=== PATIENT | female | born 1970 | race Caucasian/White ===

== ENCOUNTER → 2016-09-21 | Outpatient (CLI) | payer OTHER ==
--- NOTE | 2016-09-21 16:15 | REPMRS ---
Patient History The patient states she has not had a clinical breast exam in over a year. Patient has history of skin cancer at age 44. No known family history of cancer. Digital Woman Screen Mammo: September 21, 2016 - Exam #: [id number] Bilateral CC and MLO view(s) were taken. Technologist: Mariama Humphries, Technologist Prior study comparison: April 05, 2015, digital woman screen mammo performed at [facility]. FINDINGS: There are scattered fibroglandular densities. There has been no change in the appearance of the mammogram from the prior studies. There is a moderate amount of residual fibroglandular tissue which is fairly symmetric. There is no interval development of dominant mass, architectural distortion, or clustered microcalcification suggestive of malignancy. Scattered lymph nodes are seen in the axillae. There are scattered, small, benign calcifications of doubtful clinical significance. No significant changes when compared with prior studies. ASSESSMENT: BI-RADS/ACR category 2 mammogram. Benign finding(s). Recommendation Routine screening mammogram in 1 year (for women over age 40). This mammogram was interpreted with the aid of an FDA-approved computer-aided dectection system. A. Negative x-ray reports should not delay biopsy if a dominant or clinically suspicious mass is present. B. Four to eight percent of cancers are not identified by mammography. C. Adenosis and dense breast may obscure an underlying neoplasm. Electronically Signed By: Ab Tirado MD 09/21/16 [id number]
== END ==
LOC: M WHC 14:36
PROVIDERS: ATTEND Family Medicine
DX: Z12.31 Encounter for screening mammogram for malignant neoplasm of breast (principal)

== ENCOUNTER → 2017-03-16 | Outpatient (REF) | payer MEDICAID ==
[2017-03-16 17:47] LABS: ALBUMIN 3.8 GM/DL (3.2-5.2); ALBUMIN/GLOBULIN RATIO 1.15 (1.00-1.93); ALKALINE PHOSPHATASE 60 U/L (45-117); ALT/SGPT 28 U/L (12-78); ANION GAP 7 MEQ/L (8-16); AST/SGOT 14 U/L (15-37); BILIRUBIN,TOTAL 0.3 MG/DL (0.2-1.0); BLOOD UREA NITROGEN 13 MG/DL (7-18); CALCIUM LEVEL 8.9 MG/DL (8.5-10.1); CARBON DIOXIDE LEVEL 28 MEQ/L (21-32); CHLORIDE LEVEL 107 MEQ/L (98-107); CHOLESTEROL LEVEL 221 MG/DL (<200); CREATININE FOR GFR 0.76 MG/DL (0.55-1.02); GLOMERULAR FILTRATION RATE > 60.0 (>58); GLUCOSE, FASTING 87 MG/DL (70-105); POTASSIUM SERUM 4.6 MEQ/L (3.5-5.1); SODIUM LEVEL 142 MEQ/L (136-145); TOTAL PROTEIN 7.1 GM/DL (6.4-8.2); TRIGLYCERIDES LEVEL 138 MG/DL (<150)
[2017-03-16 18:19] LABS: BASO % 0.4 % (0.0-1.0); EOS # 0.4 K/mm3 (0.0-0.50); EOS % 4.6 % (0.0-3.0); LARGE UNSTAINED CELL # 0.1 K/mm3 (0.0-0.4); LARGE UNSTAINED CELL % 0.9 % (0.0-4.0); LYMPH # 1.9 K/mm3 (1.5-4.5); LYMPH % 22.9 % (24.0-44.0); MEAN CORPUSCULAR HEMOGLOBIN 29.6 pg (27.0-33.0); MEAN CORPUSCULAR HGB CONC 33.3 g/dl (32.0-36.5); MEAN CORPUSCULAR VOLUME 88.8 fl (80.0-96.0); MONO # 0.4 K/mm3 (0.0-0.8); MONO % 4.9 % (0.0-5.0); NEUTROPHILS # 5.3 K/mm3 (1.8-7.7); NEUTROPHILS % 66.3 % (36.0-66.0); PLATELET COUNT, AUTOMATED 293 k/mm3 (150-450); RED CELL DISTRIBUTION WIDTH 13.3 % (11.5-14.5); WHITE BLOOD COUNT 7.9 K/mm3 (4.0-10.0)
== END ==
LOC: M SFHCPLAZ 16:40
PROVIDERS: ATTEND Nurse Practitioner Family
DX: M19.072 Primary osteoarthritis, left ankle and foot (principal); Z13.220 Encounter for screening for lipoid disorders

== ENCOUNTER → 2017-03-16 | Outpatient (REF) | payer MEDICAID, OTHER ==
[2017-03-16 17:55] LABS: FOLATE 14.4 NG/ML
[2017-03-16 17:56] LABS: FREE T4 0.87 NG/DL (0.76-1.46)
[2017-03-19 00:55] LABS: Lyme Disease IgG/IgM Antibodie <0.91 ISR (0.00-0.90); Lyme Disease IgM Ab Quantitati <0.80 index (0.00-0.79)
== END ==
LOC: M SFHCCAPE 11:15
PROVIDERS: ATTEND Physician Assistant
DX: R53.83 Other fatigue (principal)

== ENCOUNTER → 2017-03-26 | Outpatient (CLI) | payer MEDICAID, OTHER ==
--- NOTE | 2017-03-26 18:49 | REP ---
LEFT SHOULDER, THREE VIEWS: HISTORY: Pain. There is no acute fracture or dislocation. The joint spaces are normal in appearance. IMPRESSION: There is no acute fracture or dislocation. Signed by Serge Frye MD 03/26/2017 06:52 P
== END ==
LOC: M LRY 18:01
PROVIDERS: ATTEND Physician Assistant
DX: S49.92XA Unspecified injury of left shoulder and upper arm, initial encounter (principal); X58.XXXA Exposure to other specified factors, initial encounter; Y92.89 Other specified places as the place of occurrence of the external cause; Y93.89 Activity, other specified; Y99.8 Other external cause status; M79.622 Pain in left upper arm

== ENCOUNTER 2017-08-10 13:27 | Emergency (ER) | payer OTHER, MEDICAID ==
[2017-08-10] MEDS: ONDANSETRON 4MG/2ML VIAL (J2405) IV (14:05)
[2017-08-10] MEDS: MORPHINE 4 MG/ML 1ML VIAL (J2270) IV ×4 (14:06→16:17)
[2017-08-10 15:01] LABS: ANION GAP 7 MEQ/L (8-16); BLOOD UREA NITROGEN 12 MG/DL (7-18); CALCIUM LEVEL 8.4 MG/DL (8.5-10.1); CARBON DIOXIDE LEVEL 29 MEQ/L (21-32); CHLORIDE LEVEL 102 MEQ/L (98-107); CREATININE FOR GFR 0.73 MG/DL (0.55-1.30); GLOMERULAR FILTRATION RATE > 60.0 (>58); GLUCOSE, FASTING 99 MG/DL (70-100); POTASSIUM SERUM 3.9 MEQ/L (3.5-5.1); SODIUM LEVEL 138 MEQ/L (136-145)
[2017-08-10 15:02] LABS: BASO % 0.3 % (0.0-1.0); EOS # 0.1 10^3/uL (0.0-0.50); EOS % 0.8 % (0.0-3.0); HEMATOCRIT 42.7 % (36.0-47.0); HEMOGLOBIN 14.7 g/dl (12.0-16.0); IMMATURE GRANULOCYTE % 0.4 % (0-3.0); LYMPH # 1.8 10^3/uL (1.5-4.5); LYMPH % 12.1 % (24.0-44.0); MEAN CORPUSCULAR HEMOGLOBIN 29.6 pg (27.0-33.0); MEAN CORPUSCULAR HGB CONC 34.4 g/dl (32.0-36.5); MEAN CORPUSCULAR VOLUME 86.1 fl (80.0-96.0); MONO # 0.6 10^3/uL (0.0-0.8); MONO % 4.2 % (0.0-5.0); NEUTROPHILS % 82.2 % (36.0-66.0); PLATELET COUNT, AUTOMATED 307 10^3/uL (150-450); RED BLOOD COUNT 4.96 10^6/uL (4.00-5.40); RED CELL DISTRIBUTION WIDTH 12.9 % (11.5-14.5); WHITE BLOOD COUNT 14.6 10^3/uL (4.0-10.0)
[2017-08-10] MEDS: ADACEL/BOOSTRIX VACCINE (DIPHTH/PERTUSS/ACELL/TETANUS)0.5ML SYR (90715) IM (15:30)
[2017-08-10] MEDS: NS 1,000 ML IV (15:30)
== END 2017-08-10 18:10 | disposition short-term general hospital (02) ==
LOC: M ED 13:27
DX: S82.222B Displaced transverse fracture of shaft of left tibia, initial encounter for open fracture type I or II (principal); S82.402B Unspecified fracture of shaft of left fibula, initial encounter for open fracture type I or II; S82.832B Other fracture of upper and lower end of left fibula, initial encounter for open fracture type I or II; W55.29XA Other contact with cow, initial encounter; Y92.71 Barn as the place of occurrence of the external cause; J45.909 Unspecified asthma, uncomplicated; M19.072 Primary osteoarthritis, left ankle and foot; Z79.51 Long term (current) use of inhaled steroids; Z79.899 Other long term (current) drug therapy; Z88.0 Allergy status to penicillin
CPT/HCPCS: J2270

== ENCOUNTER → 2017-09-06 | Outpatient (CLI) | payer OTHER | LOC: M RAD 15:24 | DX: S82.402D Unspecified fracture of shaft of left fibula, subsequent encounter for closed fracture with routine healing (principal); X58.XXXD Exposure to other specified factors, subsequent encounter; Z96.9 Presence of functional implant, unspecified; M19.072 Primary osteoarthritis, left ankle and foot | CPT/HCPCS: 73590 ==

== ENCOUNTER → 2017-11-10 | Outpatient (CLI) | payer OTHER | LOC: M RAD 13:38 | DX: M19.072 Primary osteoarthritis, left ankle and foot (principal); M77.32 Calcaneal spur, left foot; I82.442 Acute embolism and thrombosis of left tibial vein; M79.89 Other specified soft tissue disorders | CPT/HCPCS: 73610 ==

== ENCOUNTER → 2017-11-19 | Outpatient (REF) | payer OTHER ==
[2017-11-21 00:06] LABS: HOMOCYST(E)INE SERUM 6.8 umol/L (0.0-15.0)
[2017-11-23 14:12] LABS: PROTEIN C FUNCTIONAL ACTIVITY 113 % (73-180); PROTEIN S FUNCTIONAL ACTIVITY 82 % (63-140)
[2017-11-23 14:12] LABS: ANTI THROMBIN 3 FUNCT ACTIVITY 105 % (75-135)
[2017-11-30 07:22] LABS: DRVV SCREEN 76.6 SEC
[2017-11-30 07:27] LABS: PTT LUPUS TYPE ANTICOAG SCREEN 1.8 (0-1.2)
[2017-11-30 07:34] LABS: DRVV CONFIRM 47.5 SEC; LUPUS CONFIRM RATIO 1.3
[2017-11-30 07:37] LABS: NORMALIZED RATIO 1.38 (0.00-1.20)
[2017-12-02 10:16] LABS: HEXAGONAL PHASE PHOSPHOLIPID 5 sec (0-11)
== END ==
LOC: M SFHCPLAZ 09:30
DX: I82.442 Acute embolism and thrombosis of left tibial vein (principal)

== ENCOUNTER → 2018-10-18 | Outpatient (REF) | payer OTHER ==
[~2018-10-18] MED LIST: ADV250INH INH; CETI10TA; FLUTISP; PROAAER10
== END ==
LOC: M SFHCPLAZ 14:17
PROVIDERS: ATTEND Family Medicine
DX: Z53.9 Procedure and treatment not carried out, unspecified reason (principal); Z13.220 Encounter for screening for lipoid disorders; R00.0 Tachycardia, unspecified; R79.89 Other specified abnormal findings of blood chemistry

== ENCOUNTER → 2018-10-25 | Outpatient (REF) | payer OTHER ==
[2018-10-25 20:48] LABS: BLOOD UREA NITROGEN 16 MG/DL (7-18); CREATININE FOR GFR 0.87 MG/DL (0.55-1.30); GLOMERULAR FILTRATION RATE > 60.0 (>58); GLUCOSE, FASTING 86 MG/DL (70-100); SODIUM LEVEL 140 MEQ/L (136-145)
[2018-10-25 20:49] LABS: CARBON DIOXIDE LEVEL 28 MEQ/L (21-32); CHLORIDE LEVEL 106 MEQ/L (98-107)
[2018-10-25 20:50] LABS: ALBUMIN 3.7 GM/DL (3.2-5.2); ALT/SGPT 19 U/L (12-78); BILIRUBIN,TOTAL 0.3 MG/DL (0.2-1.0); CALCIUM LEVEL 8.5 MG/DL (8.5-10.1); CHOLESTEROL LEVEL 182 MG/DL (<200); CHOLESTEROL RISK RATIO 3.137 (<5); HDL CHOLESTEROL 58 MG/DL (>40); LDL CHOLESTEROL 99.8 MG/DL (<100); NON-HDL-C 124 MG/DL; TOTAL PROTEIN 6.8 GM/DL (6.4-8.2); TRIGLYCERIDES LEVEL 121 MG/DL (<150)
[2018-10-25 21:49] LABS: TOTAL 25(OH) VITAMIN D 15.1 NG/ML (30.0-100.0)
== END ==
LOC: M SFHCPLAZ 08:53
PROVIDERS: ATTEND Family Medicine
DX: Z13.220 Encounter for screening for lipoid disorders (principal); R00.0 Tachycardia, unspecified; R79.89 Other specified abnormal findings of blood chemistry

== ENCOUNTER → 2020-04-22 | Outpatient (CLI) | payer OTHER ==
--- NOTE | 2020-04-22 18:19 | REPPI ---
INDICATION: M25.571 PAIN IN RIGHT ANKLE AND JOINTS. Right ankle and foot pain. COMPARISON: Comparison radiographs of the right ankle are from June 01, 2008.. TECHNIQUE: Four views. FINDINGS: Four views of the right ankle demonstrate advanced tibiotalar osteoarthritis with medial joint space narrowing and medial tibiotalar spurring. There is anterior tibiotalar spurring. The ankle mortise is markedly widened laterally consistent with ligament instability and/or chronic disruption. There is some soft tissue swelling laterally mild in degree. There is a plantar calcaneal spur. Minimal midfoot osteoarthritic spurring is present on the lateral radiograph. No acute erosive changes seen. IMPRESSION: Widening of the ankle mortise laterally consistent with ligament instability. Moderate tibiotalar osteoarthritis with spurring and joint space narrowing. A tiny accessory ossicle is seen adjacent to medial malleolus. There is mild midfoot osteoarthritic spurring. Plantar heel spur. Findings are more pronounced than on the comparison radiograph from 2007. <Electronically signed by Leandro Alford > 04/22/20 [id number]
--- NOTE | 2020-04-22 18:21 | REPPI ---
INDICATION: M25.571 PAIN IN RIGHT ANKLE AND JOINTS. Right foot and ankle pain. COMPARISON: None. TECHNIQUE: Four views. FINDINGS: Four views of the right foot demonstrate overall normal mineralization. There is mild midfoot spurring. Tibiotalar ankle joint osteoarthritis is seen moderate in degree. There is a plantar calcaneal spur. No fracture or other acute bony abnormality is seen.. IMPRESSION: Negative osteoarthritis of the ankle and to a lesser extent, the midfoot articulations. Plantar heel spur. No acute bony abnormality. Otherwise negative right foot series. <Electronically signed by Leandro Alford > 04/22/20 [id number]
== END ==
LOC: M PLAIMG 14:32
PROVIDERS: ATTEND Family Medicine
DX: M19.071 Primary osteoarthritis, right ankle and foot (principal); M77.31 Calcaneal spur, right foot

== ENCOUNTER → 2021-01-29 | Outpatient (REF) | payer OTHER | LOC: M SFHCPLAZ 13:05 | PROVIDERS: ATTEND Student in an Organized Health Care Education/Training Program | DX: C44.301 Unspecified malignant neoplasm of skin of nose (principal) ==

== ENCOUNTER → 2021-05-17 | Outpatient (REF) | payer OTHER | LOC: M LAB REF 21:01 | PROVIDERS: ATTEND Physician Assistant Medical | DX: R53.83 Other fatigue (principal) ==

== ENCOUNTER 2021-05-30 15:10 | Emergency (ER) | payer OTHER ==
[~2021-05-30] VITALS: Ht 167.6 cm; Wt 95.5 kg
--- OUTSIDE RECORDS SUMMARY | 2021-05-30 15:17 | CCD | Continuity of Care Document ---
Author Author Carolyn MUNOZ PA-C Organization Unknown Address [address] [place] [id number] Phone [phone] Care Team Providers Care Erp Project Manager Name Role Phone Oriana Graves MD AUTM [phone] Problems Description No Active Problems Social History Type Date Description Comments Sex Unknown ETOH Use Occasionally consumes alcohol Tobacco Use Start: Unknown Denies Smoking Allergies, Adverse Reactions, Alerts Active Allergies Criticality Reaction | Severity Comments Date Augmentin Unable to assess criticality 04/10/2015 Singulair Unable to assess criticality 11/05/2016 Amoxicillin Unable to assess criticality 11/05/2016 Medications Active Medications SIG Qnty Indications Ordering Provide r Date Advair Diskus 250-50mcg/Dose Aeros ol 2 puffs every day Unknown Albuterol Sulfate Nebulizer Unknown Valerian Root Unknown Immunizations Description No Information Available Vital Signs Date Vital Result Comment 02/25/2021 3:05pm Body Temperature 97.5 F Height 66 inches 5'6" Weight 208.00 lb BMI (Body Mass Index) 33.6 kg/m2 11/05/2016 8:16am Body Temperature 97.6 F Height 66 inches 5'6" Weight 181.00 lb BMI (Body Mass Index) 29.2 kg/m2 Results Description No Information Available Procedures Date Code Description Status 02/25/2021 89517 Office/Outpatient New Low MDM 30 -44 Minutes Completed 02/25/2021 89268 X-Ray Ankle Complete Completed Medical Devices Description No Information Available Encounters Type Date Location Provider Dx Diagnosis Office Visit 02/25/2021 2:30p [facility] Maribel Munoz PA-C M1 9.071 Primary osteoarthritis, right ankle and foot M19.072 Primary osteoarthritis, left ankle and foot Assessments Date Code Description Provider 02/25/2021 M19.071 Primary osteoarthritis, right an kle and foot Mar[facility] Munoz PA-C 02/25/2021 M19.072 Primary osteoarthritis, left ank le and foot Maribel Munoz PA-C Plan of Treatment Future Appointment(s):* 03/19/2021 10:45 am - Maribel Munoz PA-C at [facility] 02/25/2021 - Maribel Munoz PA-C* M19.071 Primary osteoarthritis, right ankle and foot* Follow up:* 2-3 week Cam ankle magalie with BMS. * M19.072 Primary osteoarthritis, left ankle and foot Functional Status Description No Information Available Mental Status Description No Information Available Referrals Description No Information Available
--- OUTSIDE RECORDS SUMMARY | 2021-05-30 15:17 | CCD ---
Author Author [facility] Organization [facility] Address Unknown Phone Unavailable Care Team Providers Care Film Tests Checker Name Role Phone Vanessa Munoz Unavailable Unavailable Vanessa Munoz Unavailable Unavailable Vanessa Munoz Unavailable Unavailable Vanessa Munoz Unavailable Unavailable Vanessa Munoz Unavailable Unavailable Vanessa Munoz Unavailable Unavailable Vanessa Munoz Unavailable Unavailable Vanessa Munoz Unavailable Unavailable Vanessa Munoz Unavailable Unavailable Vanessa Munoz Unavailable Unavailable Vanessa Munoz Unavailable Unavailable Vanessa Munoz Unavailable Unavailable Vanessa Munoz Unavailable Unavailable Vanessa Munoz Unavailable Unavailable Vanessa Munoz Unavailable Unavailable Vanessa Munoz Unavailable Unavailable Vanessa Munoz Unavailable Unavailable Vanessa Munoz Unavailable Unavailable Vanessa Munoz Unavailable Unavailable Vanessa Munoz Unavailable Unavailable Vanessa Munoz Unavailable Unavailable Vanessa Munoz Unavailable Unavailable Vanessa Munoz Unavailable Unavailable Vanessa Munoz Unavailable Unavailable Vanessa Munoz Unavailable Unavailable Vanessa Munoz Unavailable Unavailable Vanessa Munoz Unavailable Unavailable Vanessa Munoz Unavailable Unavailable Vanessa Munoz Unavailable Unavailable Re-disclosure Warning The records that you are about to access may contain information from federally-assisted alcohol or drug abuse programs. If such information is present, then the following federally mandated warning applies: This information has been disclosed to you from records protected by federal confidentiality rules (42 CFR part 2). The federal rules prohibit you from making any further disclosure of this information unless further disclosure is expressly permitted by the written consent of the person to whom it pertains or as otherwise permitted by 42 CFR part 2. A general authorization for the release of medical or other information is NOT sufficient for this purpose. The Federal rules restrict any use of the information to criminally investigate or prosecute any alcohol or drug abuse patient.The records that you are about to access may contain highly sensitive health information, the redisclosure of which is protected by Article 27-F of the [facility] Public Health law. If you continue you may have access to information: Regarding HIV / AIDS; Provided by facilities licensed or operated by the [facility] Office of Mental Health; or Provided by the [facility] Office for People With Developmental Disabilities. If such information is present, then the following [facility] mandated warning applies: This information has been disclosed to you from confidential records which are protected by state law. State law prohibits you from making any further disclosure of this information without the specific written consent of the person to whom it pertains, or as otherwise permitted by law. Any unauthorized further disclosure in violation of state law may result in a fine or longterm sentence or both. A general authorization for the release of medical or other information is NOT sufficient authorization for further disc losure. Family History Family Member Name Family Member Gender Family Member Status Date o f Status Description Data Source(s) Unknown Male Problem MEDENT ([facility]) Encounters Encounter Providers Location Date Indications Data Source(s ) Outpatient [address] [facility] [place] [address] 04/16/2021 12:00:00 AM EDT eCW1 ([facility]) Outpatient [address] [facility] [place] [address] 04/10/2021 12:00:00 AM EDT eCW1 ([facility]) Unknown [address] [facility] [place] [address] 04/08/2021 12:00:00 AM EDT eCW1 ([facility]) [place] [address] [facility] [address] [place] [address] 03/28/2021 12:00:00 AM EDT eCW1 ([facility]) OFFICE OUTPATIENT NEW 30 MINUTES Attender: Maribel RIOS Ph ysical Therapy 02/25/2021 02:30:00 PM EDT [facility] ([facility]) [place] [address] [facility] [address] 02/04/2021 12:00:00 AM EDT eCW1 ([facility]) [place] [address] [facility] [place] [address] 01/14/2021 12:00:00 AM EDT eCW1 ([facility]) [place] [address] [facility] [place] [address] 01/13/2021 12:00:00 AM EDT eCW1 ([facility]) [place] [address] [facility] [place] [address] 11/18/2020 12:00:00 AM EDT eCW1 ([facility]) [place] [address] [facility] [place] [address] 04/22/2020 12:00:00 AM EDT eCW1 ([facility]) Immunizations Vaccine Date Status Description Data Source(s) COVID-19 VACCINE Moderna 10/08/2020 12:00:00 AM EDT completed [facility] Vaccine Series Complete: YESThis Data wa s Submitted to [facility] Via [employer]. COVID-19 VACCINE Moderna 09/10/2020 12:00:00 AM EDT completed [facility] Vaccine Series Complete: NOThis Data was Submitted to [facility] Via [employer]. influenza, recombinant, quadrIvalent,injectable, prese rvative free 04/22/2020 05:24:00 PM EDT completed eCW1 ([facility]) influenza, recombinant, quadrIvalent,injectable, prese rvative free 04/22/2020 05:24:00 PM EDT completed eCW1 ([facility]) influenza, recombinant, quadrIvalent,injectable, prese rvative free 04/22/2020 05:24:00 PM EDT completed eCW1 ([facility]) influenza, recombinant, quadrIvalent,injectable, prese rvative free 04/22/2020 05:24:00 PM EDT completed eCW1 ([facility]) influenza, recombinant, quadrIvalent,injectable, prese rvative free 04/22/2020 05:24:00 PM EDT completed eCW1 ([facility]) influenza, recombinant, quadrIvalent,injectable, prese rvative free 04/22/2020 05:24:00 PM EDT completed eCW1 ([facility]) influenza, recombinant, quadrIvalent,injectable, prese rvative free 04/22/2020 05:24:00 PM EDT completed eCW1 ([facility]) influenza, recombinant, quadrIvalent,injectable, prese rvative free 04/22/2020 05:24:00 PM EDT completed eCW1 ([facility]) influenza, recombinant, quadrIvalent,injectable, prese rvative free 04/22/2020 05:24:00 PM EDT completed eCW1 ([facility]) Medications Medication Brand Name Start Date Product Form Dose Route Admi nistrative Instructions Pharmacy Instructions Status Indications Reaction Description Data Source(s) 90 mcg/actuation 03/31/2021 12:00:00 AM EDT HFA aerosol inha ler 18 INHALE TWO PUFFS BY MOUTH EVERY 4 HOURS NEEDED INHALE TWO PUFFS BY MOUTH EVERY 4 HOURS NEEDED SOLD: 04/02/2021 [facility] 60 ACTUAT Fluticasone propionate 0.113 M G/ACTUAT / Salmeterol xinafoate 0.014 MG/ACTUAT Dry Powder Inhaler 113-14 mcg/actuation FLUTICASONE PROPION/SALMETEROL 01/14/2021 12:00:00 AM EDT aerosol powdr breath activated 1 INHALE ONE PUFF BY MOUTH TWICE A DAY INHALE ONE PUFF BY MOUTH TWICE A DAY SOLD: 01/17/2021 [facility] 113-14 mcg/actuation 09/27/2020 12:00:00 AM EDT aerosol powdr breath activated 1 INHALE ONE PUFF BY MOUTH TWICE A DAY INHA LE ONE PUFF BY MOUTH TWICE A DAY SOLD: 10/05/2020 [facility] 60 ACTUAT Fluticasone propionate 0.113 M G/ACTUAT / Salmeterol xinafoate 0.014 MG/ACTUAT Dry Powder Inhaler 113-14 mcg/actuation FLUTICASONE PROPION/SALMETEROL 09/27/2020 12:00:00 AM EDT aerosol powdr breath activated 1 INHALE ONE PUFF BY MOUTH TWICE A DAY INHALE ONE PUFF BY MOUTH TWICE A DAY SOLD: 11/27/2020 [facility] 113-14 mcg/actuation 08/31/2019 12:00:00 AM EST aerosol powdr breath activated 1 INHALE ONE PUFF BY MOUTH TWICE A DAY INHA LE ONE PUFF BY MOUTH TWICE A DAY SOLD: 07/01/2020 [facility] 90 mcg/actuation 08/28/2019 12:00:00 AM EST HFA aerosol inha ler 18 INHALE 2 PUFFS NEEDED EVERY FOUR HOURS INHALE 2 PUFFS NEEDED EVERY FOUR HOURS SOLD: 07/01/2020 [facility] Insurance Providers Payer name Policy type / Coverage type Policy ID Covered republican ID Covered republican's relationship to ames Policy [place] Plan Information i FHP-(DO Not Use) Medigap Part B [id number] Self Medicaid [place] Med[place] Part B [id number] Self [facility] Community Plan Commercial [id number] Self [id number] [facility] Comm Plan Medicaid F [id number] SELF [id number] [facility] Comm Plan Medicaid F [id number] SELF [id number] [facility] Comm Plan Medicaid F [id number] SELF [id number] [facility] I [id number] Self [id number] ANSI-Medicaid [id number] ANSI-Medicaid [id number] ANSI-Medicaid [id number] ANSI-Medicaid [id number] ANSI-Medicaid [id number] ANSI-Medicaid [id number] ANSI-Medicaid [id number] ANSI-Medicaid [id number] ANSI-Medicaid [id number] [employer] [facility] [id number] SP [id number] [facility] O [id number] S [id number] ANSI-Medicaid [id number] ANSI-Medicaid [id number] [facility] MEDICAID [id number] S [id number] MEDICAID [id number] SP [id number] O BLUE [id number] SP [id number] [employer] [id number] SP [id number] [employer] [facility] [id number] SP [id number] ANS-Medicaid [id number] ANS-Medicaid [id number] [facility]-Medicaid [id number] [facility]-Medicaid [id number] [facility]-Medicaid [id number] Problems, Conditions, and Diagnoses Code Display Name Description Problem Type Effective Dates Data Source(s) C44.311 [id number] Basal cell carcinoma of left side of nose Problem 04/10/2021 12:00:00 AM EDT eCW1 ([facility]) C44.311 [id number] Basal cell carcinoma (BCC) of skin of nos e Problem 02/04/2021 12:00:00 AM EDT eCW1 ([facility]) M19.071 [id number] Osteoarthritis of right ankle and foot Problem 01/13/2021 12:00:00 AM EDT eCW1 ([facility]) J45.30 [id number] Mild persistent asthma without complicati on Problem 01/13/2021 12:00:00 AM EDT eCW1 ([facility]) L98.491 [id number] Nonhealing skin ulcer, limited to breakdo wn of skin Problem 01/13/2021 12:00:00 AM EDT eCW1 ([facility]) Surgeries/Procedures Procedure Description Date Indications Data Source(s) Suture Removal 04/16/2021 12:00:00 AM EDT eCW1 ([facility]) Med: Derm Lidocaine with Epinephrine Inj ection 1% with 2 ml sodium bicarbonate Intradermally to marked areas 04/10/2021 12:00:00 AM EDT eCW1 ([facility]) RADEX ANKLE COMPLETE MINIMUM 3 VIEWS 02/25/2021 12:00: 00 AM EDT [facility] ([facility] ) OFFICE OUTPATIENT NEW 30 MINUTES 02/25/2021 12:00:00 A M EDT [facility] ([facility] ) RADEX ANKLE COMPLETE MINIMUM 3 VIEWS 02/25/2021 12:00: 00 AM EDT [facility] ([facility] ) Immunization: Flublok Quadrivalent (18 years & older) 0.5mL IM (Influenza) 04/22/2020 12:00:00 AM EDT eCW1 ([facility]) Results ID Date Data Source PLZ FOOT COMPLETE 04/23/2020 05:22:17 AM EDT eCW1 ([facility]) Name Value Range Interpretation Code Description Data Pebbles rce(s) Supporting Document(s) PLZ FOOT COMPLETE eCW1 ([facility]) ID Date Data Source PLZ ANKLE COMPLETE 04/23/2020 05:22:08 AM EDT eCW1 ([facility]) Name Value Range Interpretation Code Description Data Pebbles rce(s) Supporting Document(s) PLZ ANKLE COMPLETE eCW1 ([facility]) Procedure Social History No Information Vital Signs ID Date Data Source UNK Name Value Range Interpretation Code Description Data Source(s) Body weight 208 [lb_av] 208 [lb_av] eCW1 ([facility]) Body weight 94.35 kg 94.35 kg eCW1 ([facility]) Body height 65.75 [in_i] 65.75 [in_i] eCW1 ([facility]) Body mass index (BMI) [Ratio] 33.82 kg/m2 33.82 kg/m2 eCW1 ([facility]) Systolic blood pressure 120 mm[Hg] 120 mm[Hg] e CW1 ([facility]) Diastolic blood pressure 78 mm[Hg] 78 mm[Hg] eCW1 ([facility]) Body mass index (BMI) [Ratio] 33.6 kg/m2 33.6 k g/m2 MEDENT ([facility]) Body temperature 97.5 [degF] 97.5 [degF] MEDENT ([facility]) Body height 66 [in_i] 66 [in_i] MEDENT ([facility]) 5'6" Body weight 208.00 [lb_av] 208.00 [lb_av] MEDEN T ([facility]) Body weight 207.1 [lb_av] 207.1 [lb_av] eCW1 ([facility]) Body height 65.75 [in_i] 65.75 [in_i] eCW1 ([facility]) Body mass index (BMI) [Ratio] 33.68 kg/m2 33.68 kg/m2 eCW1 ([facility]) Heart rate 98 /min 98 /min eCW1 ([facility]) Respiratory rate 18 /min 18 /min eCW1 ([facility]) Body temperature 98.0 [degF] 98.0 [degF] eCW1 ( [facility]) Systolic blood pressure 124 mm[Hg] 124 mm[Hg] e CW1 ([facility]) Diastolic blood pressure 76 mm[Hg] 76 mm[Hg] eCW1 ([facility]) Body weight 213 [lb_av] 213 [lb_av] eCW1 ([facility]) Body height 65.75 [in_i] 65.75 [in_i] eCW1 ([facility]) Body mass index (BMI) [Ratio] 34.64 kg/m2 34.64 kg/m2 eCW1 ([facility]) Heart rate 113 /min 113 /min eCW1 ([facility]) Respiratory rate 19 /min 19 /min eCW1 ([facility]) Body temperature 96.8 [degF] 96.8 [degF] eCW1 ( [facility]) Systolic blood pressure 118 mm[Hg] 118 mm[Hg] e CW1 ([facility]) Diastolic blood pressure 74 mm[Hg] 74 mm[Hg] eCW1 ([facility])
--- OUTSIDE RECORDS SUMMARY | 2021-05-30 15:17 | CCD ---
Author Author [facility] Organization [facility] Address Unknown Phone Unavailable Care Team Providers Care Program Manager Transportation Name Role Phone Sonam Graves Unavailable PROBLEMS Type Condition ICD9-CM Code [id number] Code Onset Dates Condition S tatus W/U Status Risk SNOMED Code Notes Problem Basal cell carcinoma (BCC) of skin of nose C44.311 Active confirmed 626733201 Problem Mild persistent asthma J45.30 Active confirmed 403255097 Problem Actinic keratosis L57.0 Active confirmed 20 0978667 Problem Rosacea L71.9 Active confirmed 538631177 no inflammatory lesions, asymptomatic Problem Actinic cheilitis L56.8 Active confirmed 46 915499 few areas of probable AKs on lower lip, nothing terribly worrisome looking today Problem Other asthma J45.998 Active confirmed 370259 001 Problem Other chronic pain G89.29 Active confirmed 8 4323354 Problem Acute deep vein thrombosis (DVT) of tibi al vein of left lower extremity I82.442 Active confirmed [id number] Problem Osteoarthritis of right ankle and foot M19.071 A ctive confirmed [id number] Problem Arthritis of left ankle M19.072 Active confirmed 717713943 Problem Mild persistent asthma without complication J45.30 Active confirmed 725003997 Problem Sun-damaged skin L57.8 Active confirmed 439 46206 Problem H/O deep venous thrombosis Z86.718 Active confirmed 689182115 Problem Hypercholesterolemia E78.00 Active confirmed 14003062 Problem Chronic deep vein thrombosis (DVT) of tibial vein of left lower extremity I82.542 Active confirmed 895859613074188 Problem Nonhealing skin ulcer, limited to breakdown of skin L98.491 Active confirmed 70338272 ALLERGIES Allergen (clinical drug ingredient) Drug/Non Drug Allergy do cumented on EMR Reaction Allergy Type Onset Date Status montelukast Singulair([facility] Code:[address]-14) Unknown Drug Allergy Active amoxicillin / clavulanate Augmentin([facility] Code:[address]-38) hive s, syncope Drug Allergy Active ENCOUNTERS from 1971 to 2021-03-31 Encounter Location Date Provider Diagnosis [address] [phone] [place] [address] Mar, Sonam Graves IMMUNIZATIONS Vaccine Route Administration Date Status Influenza 18 yrs & older Flublok IM Intramuscular Apr 22, 2020 Administered Influenza 18 yrs & older Flublok IM Intramuscular Mar 11, 2018 Administered Pneumococcal Adult 0.5mL Pneumovax 23 Unknown Jun 28 05 Administered TDAP 0.5mL (Boostrix) Unknown Aug 10, 2017 Administer ed MMR 0.5mL IM Intramuscular Aug 25, 2013 Administered MMR 0.5mL Unknown Aug 15, 2013 Administered Influenza 6mo & up Fluzone IM Intramuscular Mar 29, 2015 Admi nistered Influenza 6mo & up Fluzone IM Intramuscular Apr 18, 2014 Admi nistered Influenza 6mo & up Fluzone IM Intramuscular Jun 09, 2013 Admi nistered SOCIAL HISTORY Sex Assigned At : Social History Observation Description Sex Assigned At Unknown Sexual Hx: Question Answer Notes Had sex in the last 12 months (vaginal, oral, or anal)? No LMP: 03/08/18 Have you ever had an STD? No Alcohol Screening: Question Answer Notes Did you have a drink containing alcohol in the past year? Ye s Points 1 Interpretation Negative How often did you have six or more drinks on one occas ion in the past year? Never (0 points) How many drinks did you have on a typica l day when you were drinking in the past year? 1 or 2 (0 points) How often did you have a drink containing alcohol in t he past year? Monthly or less (1 point) BMI Care Goal Follow-Up Question Answer Notes Above Normal BMI Follow-Up Lifestyle education regarding t REASON FOR REFERRAL No Information VITAL SIGNS No information MEDICATIONS Medication SIG (Take, Route, Frequency, Duration) Notes Start Da te End Date Status Naproxen 500 MG 1 tablet as needed Orally every 12 hrs for 14 da y(s) Mar, Not-Taking Vitamin D3 2000 UNIT 1 capsule Orally Once a day for 30 day(s) Feb, Not-Taking Advair Diskus 250-50 MCG/DOSE 1 puff Inhalation Twice a day for 30 days Jan, Not-Taking Cetirizine HCl 10 MG 1 tablet Orally Once a day for 30 day(s) Feb, Not-Taking Albuterol Sulfate HFA 108 (90 Base) MCG/ACT 2 puffs as needed Inhalation every 4 hrs prn for 30 days Active Flonase 50 MCG/ACT 1 spray in each nostril Nasally Once a day fo r 30 day(s) Feb, Active Aspirin 325 MG 1 tablet Orally Once a day Not-Taking AirDuo RespiClick 113/14 113-14 MCG/ACT 1 puff Inhalation Twice a day for 30 Active Doxycycline Hyclate 100 MG 1 tablet Orally Twice a day for 7 day s Aug, Not-Taking PROCEDURES No Information RESULTS No Results REASON FOR VISIT refill MEDICAL (GENERAL) HISTORY Type Description Date Medical History Asthma, mild persistent Medical History foot pain-orthotics as per [facility] History sun damage with significant AK burden Medical History h/o provoked DVT after left leg fx, took rivaroxaban for 6 months (2017) Surgical History Left tib/Fib 08/11/17 Hospitalization History Left leg break 08/10/17-08/19/17 Goals Section No Information Health Concerns No Information MEDICAL EQUIPMENT No Information MENTAL STATUS No Information FUNCTIONAL STATUS No Information ASSESSMENTS No Information PLAN OF TREATMENT Medication Medication Name Sig Start Date Stop Date Albuterol Sulfate HFA 108 (90 Base) MCG/ACT 2 puffs as needed Inhalation every 4 hrs prn for 30 days Next Appt Details Provider Name:Joel Brown, 2020- 10- 07:15:00 AM, [address] [facility], , [place], [place], [facility], Insurance Providers Payer Name Payer Address Payer Phone Insured Name Patient Relati onship to Insured Coverage Start Date Coverage End Date [facility] [employer] [address] [facility] [id number] [phone] NEMESIO TORIBIO self
--- OUTSIDE RECORDS SUMMARY | 2021-05-30 15:17 | CCD ---
Author Author [facility] Organization [facility] Address Unknown Phone Unavailable Care Team Providers Care Kitchen Helper Name Role Phone Joel Brown Unavailable PROBLEMS Type Condition ICD9-CM Code [id number] Code Onset Dates Condition S tatus W/U Status Risk SNOMED Code Notes Problem Actinic keratosis L57.0 Active confirmed 20 [id number] Problem Basal cell carcinoma (BCC) of skin of nose C44.311 Active confirmed 660036897 Problem Actinic cheilitis L56.8 Active confirmed 46 225060 few areas of probable AKs on lower lip, nothing terribly worrisome looking today Problem Mild persistent asthma J45.30 Active confirmed 819195195 Problem Sun-damaged skin L57.8 Active confirmed 439 08112 Problem Rosacea L71.9 Active confirmed 404192806 no inflammatory lesions, asymptomatic Problem Other chronic pain G89.29 Active confirmed 8 0218044 Problem Acute deep vein thrombosis (DVT) of tibi al vein of left lower extremity I82.442 Active confirmed 669737529560867 Problem H/O deep venous thrombosis Z86.718 Active confirmed 500141834 Problem Nonhealing skin ulcer, limited to breakdown of skin L98.491 Active confirmed 75332647 Problem Other asthma J45.998 Active confirmed 388790 001 Problem Basal cell carcinoma of left side of nose C44.311 Active confirmed 409834631 Problem Arthritis of left ankle M19.072 Active confirmed 581262235 Problem Hypercholesterolemia E78.00 Active confirmed 21121769 Problem Chronic deep vein thrombosis (DVT) of tibial vein of left lower extremity I82.542 Active confirmed 010544310203163 Problem Mild persistent asthma without complication J45.30 Active confirmed 010428395 Problem Osteoarthritis of right ankle and foot M19.071 A ctive confirmed [id number] ALLERGIES Allergen (clinical drug ingredient) Drug/Non Drug Allergy do cumented on EMR Reaction Allergy Type Onset Date Status montelukast Singulair([facility] Code:[address]-52) Unknown Drug Allergy Active amoxicillin / clavulanate Augmentin([facility] Code:[address]-95) hive s, syncope Drug Allergy Active ENCOUNTERS from 1971 to 2021-04-17 Encounter Location Date Provider Diagnosis [facility] [phone] [place] [address] 20 Mar, 2021 [facility] Visit for suture removal Z48 .02 IMMUNIZATIONS Vaccine Route Administration Date Status Influenza [...] Notes Start Da te End Date Status Flonase 50 MCG/ACT 1 spray in each nostril Nasally Once a day fo r 30 day(s) Feb, Active Vitamin D3 2000 UNIT 1 capsule Orally Once a day for 30 day(s) Feb, Not-Taking Doxycycline Hyclate 100 MG 1 tablet Orally Twice a day for 7 day s Aug, Not-Taking Naproxen 500 MG 1 tablet as needed Orally every 12 hrs for 14 da y(s) Mar, Not-Taking Aspirin 325 MG 1 tablet Orally Once a day Not-Taking Cetirizine HCl 10 MG 1 tablet Orally Once a day for 30 day(s) Feb, Not-Taking AirDuo RespiClick 113/14 113-14 MCG/ACT 1 puff Inhalation Twice a day for 30 Active Albuterol Sulfate HFA 108 (90 Base) MCG/ACT 2 puffs as needed Inhalation every 4 hrs prn for 30 days Active Advair Diskus 250-50 MCG/DOSE 1 puff Inhalation Twice a day for 30 days Jan, Not-Taking PROCEDURES from 1971 to 2021-04-17 Procedure Date Ordered Result Body Site Suture Removal 2021-04-16 N/A RESULTS No Results REASON FOR VISIT S/R MEDICAL (GENERAL) HISTORY Type Description Date Medical History Asthma, mild persistent Medical History foot pain-orthotics as per [facility] Medical History sun damage with significant AK burden Medical History h/o provoked DVT after left leg fx, took rivaroxaban for 6 months (2017) Surgical History Left tib/Fib 08/11/17 Hospitalization History Left leg break 08/10/17-08/19/17 Goals Section No Information Health Concerns No Information MEDICAL EQUIPMENT No Information MENTAL STATUS No Information FUNCTIONAL STATUS No Information ASSESSMENTS Encounter Date Diagnosis Assessment Notes Treatment Notes Treatm ent Clinical Notes Mar, Visit for suture removal (ICD-10 - Z48.02) Well healed incision without evidence of infection to include erythema, purulent discharge or tenderness to palpation around site of healing. Patient currently without any specific complaints. After inspection, sutures were removed by non- physician office personnel. Non-physician office personnel reported that the removal went well and the patient left in stable condition. The patient was instructed to return to clinic anytime between 0700 and 1600 Wednesday-Wednesday for any issues relating to the site. If the dermatology clinic is not open, the patient was instructed to report to an emergency department. PLAN OF TREATMENT Treatment Notes Assessment Notes Clinical Notes Visit for suture removal Well healed inc ision without evidence of infection to include erythema, purulent discharge or tenderness to palpation around site of healing. Patient currently without any specific complaints. After inspection, sutures were removed by non-physician office personnel. Non-physician office personnel reported that the removal went well and the patient left in stable condition. The patient was instructed to return to clinic anytime between 0700 and 1600 Wednesday-Wednesday for any issues relating to the site. If the dermatology clinic is not open, the patient was instructed to report to an emergency department. Next Appt Details Provider Name:Joel Brown, 06-13 11:30:00 AM, [address] [place] [address], [place], [address], Insurance Providers Payer Name Payer Address Payer Phone Insured Name Patient Relati onship to Insured Coverage Start Date Coverage End Date [facility] [address] [facility] [phone] NEMESIO TORIBIO self
--- OUTSIDE RECORDS SUMMARY | 2021-05-30 15:17 | CCD ---
Author Author [facility] Organization [facility] Address Unknown Phone Unavailable Care Team Providers Care Sales And Marketing Specialist Name Role Phone Joel Brown Unavailable PROBLEMS Type Condition ICD9-CM Code [id number] Code Onset Dates Condition S tatus W/U Status Risk SNOMED Code Notes Problem Actinic keratosis L57.0 Active confirmed 20 [id number] Problem Basal cell carcinoma (BCC) of skin of nose C44.311 Active confirmed 755857360 Problem Actinic cheilitis L56.8 Active confirmed 46 826693 few areas of probable AKs on lower lip, nothing terribly worrisome looking today Problem Mild persistent asthma J45.30 Active confirmed 747908469 Problem Sun-damaged skin L57.8 Active confirmed 439 29082 Problem Rosacea L71.9 Active confirmed 976623259 no inflammatory lesions, asymptomatic Problem Other chronic pain G89.29 Active confirmed 8 4824262 Problem Acute deep vein thrombosis (DVT) of tibi al vein of left lower extremity I82.442 Active confirmed 126508607336729 Problem H/O deep venous thrombosis Z86.718 Active confirmed 448787332 Problem Nonhealing skin ulcer, limited to breakdown of skin L98.491 Active confirmed 86097387 Problem Other asthma J45.998 Active confirmed 166701 001 Problem Basal cell carcinoma of left side of nose C44.311 Active confirmed 176833414 Problem Arthritis of left ankle M19.072 Active confirmed 195202524 Problem Hypercholesterolemia E78.00 Active confirmed 20495376 Problem Chronic deep vein thrombosis (DVT) of tibial vein of left lower extremity I82.542 Active confirmed 431343564350511 Problem Mild persistent asthma without complication J45.30 Active confirmed 362870422 Problem Osteoarthritis of right ankle and foot M19.071 A ctive confirmed [id number] ALLERGIES Allergen (clinical drug ingredient) Drug/Non Drug Allergy do cumented on EMR Reaction Allergy Type Onset Date Status montelukast Singulair([facility] Code:[address]-49) Unknown Drug Allergy Active amoxicillin / clavulanate Augmentin([facility] Code:[address]-02) hive s, syncope Drug Allergy Active ENCOUNTERS from 1971 to 2021-04-11 Encounter Location Date Provider Diagnosis [facility] Dermatology [facility] [phone] [place] [address] 14 Mar, 2021 Joel Brown Basal cell carcinoma of left side of nose C44.311 ; Nevus of cheek D22.39 ; Sebaceous hyperplasia L73.8 and Actinic keratosis L57.0 IMMUNIZATIONS Vaccine Route Administration Date Status Influenza [...] REASON FOR REFERRAL No Information VITAL SIGNS Weight 208 lbs Mar, Weight-kg 94.35 kg Mar, Height 65.75 in Mar, BMI 33.82 kg/m2 Mar, Blood pressure systolic 120 mm Hg Mar, Blood pressure diastolic 78 mm Hg Mar, MEDICATIONS Medication SIG (Take, Route, Frequency, Duration) [...] days Jan, Not-Taking PROCEDURES from 1971 to 2021-04-11 Procedure Date Ordered Result Body Site Med: Derm Lidocaine with Epinephrine Inj ection 1% with 2 ml sodium bicarbonate Intradermally to marked areas 2021-04-10 N/A RESULTS No Results REASON FOR VISIT BCC, left lateral nose, scaly area, left lower lip , growths on face MEDICAL (GENERAL) HISTORY Type Description Date Medical History Asthma, mild persistent Medical History foot pain-orthotics as per [facility] Medical History sun damage with significant AK [...] Treatment Notes Treatm ent Clinical Notes Mar, Basal cell carcinoma of left side of nose (ICD-1 0 - C44.311) Of note, the lesion is approaching the free margin of the left lower eyelid but is below the canalicular structures. [place] protocol was followed in compliance with [facility]. Mohs Micrographic Surgeon operated in two distinct and integrated capacities as the surgeon and the pathologist. The areas was prepped with chlorhexidine. The tumor was visualized, compared against relevant records, and confirmed with the patient. The agreed upon area anesthetized with lidocaine 1% with epinephrine. Once anesthetized, the area was lightly curetted with a 3mm curette to better define tumor size. A 2mm rim of normal tissue was marked and an incision at a 45 degree angle following standard Mohs approach was performed and the specimen harvested as a microscopic controlled layer. Hemostasis was achieved with electrocautery. Estimated blood loss was 5mL.The specimen was oriented, chromacoded, mapped, and placed in 1 block. Each section was processed in the Mohs Laboratory using Mohs protocol and submitted for frozen section. Please see scanned Mohs map for appropriate use criteria score greater than or equal to 7 and pathology report. Frozen section analysis of the four quadrants showed the followin quadrants, 0 positive. Procedure: Complex repair. The wound was then widely undermined with superficial margin undermined greater than the width of the initial wound. A plication suture was placed in a horizontal fashion to the deep fascia. Wound was then closed in a multilayered fashion with deep buried absorbable sutures. Superficial approximation of tissue was accomplished non-absorbable sutures. The wound was cleaned, Vaseline placed, and a pressure dressing applied to immobilize the wound and aid in hemostasis. Patient was instructed on wound care and directed to f/u for suture removal as below. The patient was instructed to return to clinic sooner for signs of symptoms of infection to include erythema, draining fluid or pain to palpation. There was no noted significant difference from baseline pain score after procedure. Post-operative pain management plan discussed and patient will take acetaminophen 650mg every four hours as needed. The patient left the operating suite alert and fully oriented. Follow-up discussed. Procedure Management: Deep Sutures: 6-0 monocryl Superficial Sutures: 6-0 prolene Final length of incision [ 3.7 ]cm Suture Removal: [ 6 ] days 14 Mar, 2021 Nevus of cheek (ICD-10 - D22.39) Benign-appearing today. Reassurance provided, however patient was educated moles can supervisor records change time. ABCDE education performed. Patient instructed to return for any changes to the mole to include size, color, itching, burning, or bleeding. Mar, Sebaceous hyperplasia (ICD-10 - L73.8) Benign Lesion Counseling. The patient was extensively counseled regarding the benign nature of the lesion but that skin cancer may arise in this area just as it would anywhere on their skin. For that reason, return to clinic was recommended for any acute changes, itching, burning, or bleeding. The patient was educated that benign lesions are not a covered insurance benefit and treatment would be elective and cosmetic. They expressed understanding. Mar, Actinic keratosis (ICD-10 - L57.0) Cryotherapy x [1 ] number of sites. [place] protocol was followed in compliance with [facility] standards. Patient was counseled regarding the indication for treatment (precancerous state for actinic keratosis or cosmetic reasons if done for seborrheic keratoses, acrochordons or warts) as well as, the method and expected results to include compromise of the skin barrier, bleeding, scarring/white area, redness at site, lesion recurrence, and pain. Patient was consented to the risks and benefits of the procedure and gave informed consent. Lesion(s) with locations as indicated in the physical examination were treated. Lesion(s) were treated with 2 cycles of liquid nitrogen with a thaw time of at least ten seconds. Therapy was applied in a minimize collateral tissue injury. Patient was instructed to use Vaseline ointment to the area(s) until healed. Patient tolerated the procedure well and left in stable condition. Pain before and after the procedure were assessed to not be significantly different than baseline. PLAN OF TREATMENT Treatment Notes Assessment Notes Clinical Notes Basal cell carcinoma of left side of nose Of note, the lesion is approaching the free margin of the left lower eyelid but is below the canalicular structures.[place] protocol was followed in compliance with [facility] standards. Mohs Micrographic Surgeon operated in two distinct and integrated capacities as the surgeon and the pathologist. The areas was prepped with chlorhexidine. The tumor was visualized, compared against relevant records, and confirmed with the patient. The agreed upon area anesthetized with lidocaine 1% with epinephrine. Once anesthetized, the area was lightly curetted with a 3mm curette to better define tumor size. A 2mm rim of normal tissue was marked and an incision at a 45 degree angle following standard Mohs approach was performed and the specimen harvested as a microscopic controlled layer. Hemostasis was achieved with electrocautery. Estimated blood loss was 5mL.The specimen was oriented, chromacoded, mapped, and placed in 1 block. Each section was processed in the Mohs Laboratory using Mohs protocol and submitted for frozen section. Please see scanned Mohs map for appropriate use criteria score greater than or equal to 7 and pathology report. Frozen section analysis of the four quadrants s howed the followin quadrants, 0 positive.Procedure: Complex repair. The wound was then widely undermined with superficial margin undermined greater than the width of the initial wound. A plication suture was placed in a horizontal fashion to the deep fascia. Wound was then closed in a multilayered fashion with deep buried absorbable sutures. Superficial approximation of tissue was accomplished non-absorbable sutures. The wound was cleaned, Vaseline placed, and a pressure dressing applied to immobilize the wound and aid in hemostasis. Patient was instructed on wound care and directed to f/u for suture removal as below. The patient was instructed to return to clinic sooner for signs of symptoms of infection to include erythema, draining fluid or pain to palpation. There was no noted significant difference from baseline pain score after procedure.Post-operative pain management plan discussed and patient will take acetaminophen 650mg every four hours as needed. The patient left the operating suite alert and fully oriented. Follow-up discussed.Procedure Management:Deep Sutures: 6-0 monocrylSuperficial Sutures: 6-0 proleneFinal length of incision [ 3.7 ]cmSuture Removal: [ 6 ] days Nevus of cheek Benign-appearing tod ay. Reassurance provided, however patient was educated moles can supervisor records change time. ABCDE education performed. Patient instructed to return for any changes to the mole to include size, color, itching, burning, or bleeding. Sebaceous hyperplasia Benign Lesion Coun seling. The patient was extensively counseled regarding the benign nature of the lesion but that skin cancer may arise in this area just as it would anywhere on their skin. For that reason, return to clinic was recommended for any acute changes, itching, burning, or bleeding. The patient was educated that benign lesions are not a covered insurance benefit and treatment would be elective and cosmetic. They expressed understanding. Actinic keratosis Cryotherapy x [1 ] n umber of sites. [place] protocol was followed in compliance with [facility] standards. Patient was counseled regarding the indication for treatment (precancerous state for actinic keratosis or cosmetic reasons if done for seborrheic keratoses, acrochordons or warts) as well as, the method and expected results to include compromise of the skin barrier, bleeding, scarring/white area, redness at site, lesion recurrence, and pain. Patient was consented to the risks and benefits of the procedure and gave informed consent. Lesion(s) with locations as indicated in the physical examination were treated. Lesion(s) were treated with 2 cycles of liquid nitrogen with a thaw time of at least ten seconds. Therapy was applied in a minimize collateral tissue injury. Patient was instructed to use Vaseline ointment to the area(s) until healed. Patient tolerated the procedure well and left in stable condition. Pain before and after the procedure were assessed to not be significantly different than baseline. Next Appt Details 6 days Reason: Provider Name:Joel Brown, 04-16 02:00:00 PM, [address] [place] [address], [place], [address], Insurance Providers Payer Name Payer Address Payer Phone Insured Name Patient Relati onship to Insured Coverage Start Date Coverage End Date [facility] [employer] [employer] [facility] [address] [facility] [address] NEMESIO TORIBIO self
--- OUTSIDE RECORDS SUMMARY | 2021-05-30 15:17 | CCD ---
Author Author [facility] Organization [facility] Address Unknown Phone Unavailable Care Team Providers Care Special Effects Technician Name Role Phone Joel Brown Unavailable PROBLEMS Type Condition ICD9-CM Code [id number] Code Onset Dates Condition S tatus W/U Status Risk SNOMED Code Notes Problem Basal cell carcinoma (BCC) of skin of nose C44.311 Active confirmed 935112953 Problem Mild persistent asthma J45.30 Active confirmed 286759710 Problem Actinic keratosis L57.0 Active confirmed 20 0625634 Problem Rosacea L71.9 Active confirmed 026257391 no inflammatory lesions, asymptomatic Problem Actinic cheilitis L56.8 Active confirmed 46 096569 few areas of probable AKs on lower lip, nothing terribly worrisome looking today Problem Other asthma J45.998 Active confirmed 231624 001 Problem Other chronic pain G89.29 Active confirmed 8 0870848 Problem Acute deep vein thrombosis (DVT) of tibi al vein of left lower extremity I82.442 Active confirmed 401415598045015 Problem Osteoarthritis of right ankle and foot M19.071 A ctive confirmed 411718024202076 Problem Arthritis of left ankle M19.072 Active confirmed 854411466 Problem Mild persistent asthma without complication J45.30 Active confirmed 037918683 Problem Sun-damaged skin L57.8 Active confirmed 439 97013 Problem H/O deep venous thrombosis Z86.718 Active confirmed 510434060 Problem Hypercholesterolemia E78.00 Active confirmed 26003293 Problem Chronic deep vein thrombosis (DVT) of tibial vein of left lower extremity I82.542 Active confirmed 144578448783876 Problem Nonhealing skin ulcer, limited to breakdown of skin L98.491 Active confirmed 94805593 ALLERGIES Allergen (clinical drug ingredient) Drug/Non Drug Allergy do cumented on EMR Reaction Allergy Type Onset Date Status montelukast Singulair([facility] Code:[address]-18) Unknown Drug Allergy Active amoxicillin / clavulanate Augmentin([facility] Code:[address]-00) hive s, syncope Drug Allergy Active ENCOUNTERS from 1971 to 2021-04-09 Encounter Location Date Provider Diagnosis [facility] Dermatology [address] [place] [address] [place] [address] Mar, [facility] IMMUNIZATIONS Vaccine Route Administration Date Status Influenza 18 yrs & older Flublok IM Intramuscular Apr 22, 2020 Administered Influenza 18 yrs & older Flublok IM Intramuscular Mar 11, 2018 Administered Pneumococcal Adult 0.5mL Pneumovax Unknown Jun 28 05 Administered TDAP 0.5mL [...] Information RESULTS No Results REASON FOR VISIT [facility] Prior approval MEDICAL (GENERAL) HISTORY Type Description Date Medical History Asthma, mild persistent Medical History foot pain-orthotics as per [facility] Medical History sun damage with significant [...] Next Appt Details Provider Name:Joel Brown, 2020- 10-14 07:15:00 AM, [address] [facility] [place] [facility], , [place], [place], [facility], Insurance Providers Payer Name Payer Address Payer Phone Insured Name Patient Relati onship to Insured Coverage Start Date Coverage End Date [facility] [id number] [facility] [phone] NEMESIO TORIBIO self
[2021-05-30 22:38] VITALS: BP 138/92
--- OUTSIDE RECORDS SUMMARY | 2021-05-30 23:56 | CCD ---
Author Author [facility] Organization [facility] Address Unknown Phone Unavailable Care Team Providers [facility] Administrative Assistant Name Role Phone Vanessa Munoz Unavailable Unavailable Vanessa Munoz Unavailable Unavailable Vanessa Munoz Unavailable Unavailable Vanessa Munoz Unavailable Unavailable Vanessa Munoz Unavailable Unavailable Vanessa Munoz Unavailable Unavailable Vanessa Munoz Unavailable Unavailable Vanessa Munoz Unavailable Unavailable Vanessa Munoz Unavailable Unavailable aVnessa Munoz Unavailable Unavailable Vanessa Munoz Unavailable Unavailable Vanessa Munoz Unavailable Unavailable Vanessa Munoz Unavailable Unavailable Vanessa Munoz Unavailable Unavailable Vanessa Munoz Unavailable Unavailable Vanessa Munoz Unavailable Unavailable Vanessa Munoz Unavailable Unavailable Vanessa Munoz Unavailable Unavailable Vanessa Munoz Unavailable Unavailable Vanessa Mnuoz Unavailable Unavailable Vanessa Munoz Unavailable Unavailable Vanessa [...] is protected by Article 27-F of the [facility] Public Health law. If you continue you may have access to information: Regarding HIV / AIDS; Provided by facilities licensed or operated by the [facility] Office of Mental Health; or Provided by the [facility] Office for People With Developmental Disabilities. If such information is present, then the following [facility] mandated warning applies: This information has [...] law may result in a fine or intermediate sentence or both. A general authorization for the release of medical or other information is NOT sufficient authorization for further disc losure. Family History Family Member Name Family Member Gender Family Member Status Date o f Status Description Data Source(s) Unknown Male Problem MEDENT ([facility]) Encounters Encounter Providers Location Date Indications Data Source(s ) Outpatient [address] [facility] [address] 04/16/2021 12:00:00 AM EDT eCW1 (Formerly [facility]) Outpatient [address] [facility] [address] 04/10/2021 12:00:00 AM EDT eCW1 ([facility]) Unknown [address] [facility] [address] 04/08/2021 12:00:00 AM EDT eCW1 ([facility]) Unknown [address] [facility] [address] 03/28/2021 12:00:00 AM EDT eCW1 (Formerly [facility]) OFFICE OUTPATIENT NEW 30 MINUTES Attender: Maribel RIOS Ph ysical Therapy 02/25/2021 02:30:00 PM EDT MED[facility] ([facility]) Unknown [address] [facility] [address] 02/04/2021 12:00:00 AM EDT eCW1 ([facility]) Unknown [address] [facility] [address] 01/14/2021 12:00:00 AM EDT eCW1 ([facility]) Outpatient [address] [facility] [address] 01/13/2021 12:00:00 AM EDT eCW1 ([facility]) Unknown [address] [facility] [address] 11/18/2020 12:00:00 AM EDT eCW1 ([facility]) Outpatient [address] [facility] [address] 04/22/2020 12:00:00 AM EDT eCW1 ([facility]) Immunizations Vaccine Date Status Description Data Source(s) COVID-19 VACCINE Moderna 10/08/2020 12:00:00 AM EDT completed [facility] Vaccine Series Complete: YESThis Data wa s Submitted to [facility]. COVID-19 VACCINE Moderna 09/10/2020 12:00:00 AM EDT completed [facility] Vaccine Series Complete: NOThis Data was Submitted to [facility]. influenza, recombinant, quadrIvalent,injectable, prese rvative free 04/22/2020 05:24:00 PM EDT completed eCW1 ([facility]) influenza, recombinant, quadrIvalent,injectable, prese rvative free 04/22/2020 05:24:00 PM EDT completed eCW1 ([facility]) influenza, recombinant, quadrIvalent,injectable, prese rvative free 04/22/2020 05:24:00 PM EDT completed eCW1 ([facility]) influenza, recombinant, quadrIvalent,injectable, prese rvative free 04/22/2020 05:24:00 PM EDT completed eCW1 ([facility]) influenza, recombinant, quadrIvalent,injectable, prese rvative free 04/22/2020 05:24:00 PM EDT completed eCW1 ([facility]) influenza, recombinant, quadrIvalent,injectable, prese rvative free 04/22/2020 05:24:00 PM EDT completed eCW1 ([facility]) influenza, recombinant, quadrIvalent,injectable, prese rvative free 04/22/2020 05:24:00 PM EDT completed eCW1 ([facility]) influenza, recombinant, quadrIvalent,injectable, prese rvative free 04/22/2020 05:24:00 PM EDT completed eCW1 ([facility]) influenza, recombinant, quadrIvalent,injectable, prese rvative free 04/22/2020 05:24:00 PM EDT completed eCW1 ([facility]) Medications Medication Brand Name Start Date Product Form Dose Route Admi nistrative Instructions Pharmacy Instructions Status Indications Reaction Description Data Source(s) 90 mcg/actuation 03/31/2021 12:00:00 AM EDT HFA aerosol inha ler 18 INHALE TWO PUFFS BY MOUTH EVERY 4 HOURS NEEDED INHALE TWO PUFFS BY MOUTH EVERY 4 HOURS NEEDED SOLD: 04/02/2021 Justin rincon 60 ACTUAT Fluticasone propionate 0.113 M G/ACTUAT / Salmeterol xinafoate 0.014 MG/ACTUAT Dry Powder Inhaler 113-14 mcg/actuation FLUTICASONE PROPION/SALMETEROL 01/14/2021 12:00:00 AM EDT aerosol powdr breath activated 1 INHALE ONE PUFF BY MOUTH TWICE A DAY INHALE ONE PUFF BY MOUTH TWICE A DAY SOLD: 01/17/2021 [facility] 113-14 mcg/actuation 09/27/2020 12:00:00 AM EDT [...] type / Coverage type Policy ID Covered green party ID Covered green party's relationship to [place] Policy [place] Plan Information [place] FHP-(DO Not Use) Medigap Part B [id number] Self Medicaid [place] Med[place] B [id number] Self [facility] Community Plan Commercial [id number] Self [id number] [facility] Comm Plan Medicaid F [id number] SELF [id number] [facility] Comm Plan Medicaid F [id number] SELF [id number] [facility] Comm Plan Medicaid F [id number] SELF [id number] [facility] I [id number] Self [id number] ANSI-Medicaid [id number] ANSI-Medicaid [id number] ANSI-Medicaid [id number] ANSI-Medicaid [id number] ANSI-Medicaid [id number] ANSI-Medicaid [id number] ANSI-Medicaid [id number] ANSI-Medicaid [id number] ANSI-Medicaid [id number] [employer] [id number] SP [id number] [facility] O [id number] S [id number] ANSI-Medicaid [id number] [facility]-Medicaid [id number] [facility] MEDICAID [id number] S [id number] MEDICAID [id number] HMO BLUE [id number] SP [id number] [employer] COMM[employer]AN MCDO [id number] SP [id number] [facility] [id number] SP [id number] ANS-Medicaid [id number] ANS-Medicaid [id number] [facility]-Medicaid [id number] [facility]-Medicaid [id number] [facility]-Medicaid [id number] Problems, Conditions, and Diagnoses Code Display Name Description Problem Type Effective Dates Data Source(s) C44.311 [id number] Basal cell carcinoma of left side of nose Problem 04/10/2021 12:00:00 AM EDT eCW1 ([facility]) C44.311 574012010 Basal cell carcinoma (BCC) of skin of nos e Problem 02/04/2021 12:00:00 AM EDT eCW1 ([facility]) M19.071 [id number] Osteoarthritis of right ankle and foot Problem 01/13/2021 12:00:00 AM EDT eCW1 ([facility]) J45.30 [id number] Mild persistent asthma without complicati on Problem 01/13/2021 12:00:00 AM EDT eCW1 ([facility]) L98.491 [id number] Nonhealing skin ulcer, limited to breakdo wn of skin Problem 01/13/2021 12:00:00 AM EDT eCW1 ([facility]) Surgeries/Procedures Procedure Description Date Indications Data Source(s) Suture Removal 04/16/2021 12:00:00 AM EDT eCW1 ([facility]) Med: Derm Lidocaine with Epinephrine Inj ection 1% with 2 ml sodium bicarbonate Intradermally to marked areas 04/10/2021 12:00:00 AM EDT eCW1 ([facility]) RADEX ANKLE COMPLETE MINIMUM 3 VIEWS 02/25/2021 12:00: 00 AM EDT MED[facility] ([facility] ) OFFICE OUTPATIENT NEW 30 MINUTES 02/25/2021 12:00:00 A M EDT MEDENT ([facility] ) RADEX ANKLE COMPLETE MINIMUM 3 VIEWS 02/25/2021 12:00: 00 AM EDT MEDENT ([facility] ) Immunization: Flublok Quadrivalent (18 years & older) 0.5mL IM (Influenza) 04/22/2020 12:00:00 AM EDT eCW1 ([facility]) Results ID Date Data Source PLZ FOOT COMPLETE 04/23/2020 05:22:17 AM EDT eCW1 ([facility]) Name Value Range Interpretation Code Description Data Pebbles rce(s) Supporting Document(s) PLZ FOOT COMPLETE eCW1 ([facility]) ID Date Data Source PLZ ANKLE COMPLETE 04/23/2020 05:22:08 AM EDT eCW1 ([facility]) Name Value Range Interpretation Code Description Data Pebbles rce(s) Supporting Document(s) PLZ ANKLE COMPLETE eCW1 ([facility]) Procedure Social History No Information Vital Signs ID Date Data Source UNK Name Value Range Interpretation Code Description Data Source(s) Body weight 208 [lb_av] 208 [lb_av] eCW1 ([facility]) Body weight 94.35 kg 94.35 kg eCW1 ([facility]) Body height 65.75 [in_i] 65.75 [in_i] eCW1 ([facility]) Body mass index (BMI) [Ratio] 33.82 kg/m2 33.82 kg/m2 eCW1 ([facility]) Systolic blood pressure 120 mm[Hg] 120 mm[Hg] e CW1 ([facility]) Diastolic blood pressure 78 mm[Hg] 78 mm[Hg] eCW1 ([facility]) Body mass index (BMI) [Ratio] 33.6 kg/m2 33.6 k g/m2 MEDENT ([facility]) Body temperature 97.5 [degF] 97.5 [degF] MEDENT ([facility]) Body height 66 [in_i] 66 [in_i] MEDENT ([facility]) 5'6" Body weight 208.00 [lb_av] 208.00 [lb_av] MEDEN T ([facility]) Diastolic blood pressure 76 mm[Hg] 76 mm[Hg] eCW1 ([facility]) Body weight 207.1 [lb_av] 207.1 [lb_av] eCW1 ([facility]) Body height 65.75 [in_i] 65.75 [in_i] eCW1 ([facility]) Body mass index (BMI) [Ratio] 33.68 kg/m2 33.68 kg/m2 eCW1 ([facility]) Heart rate 98 /min 98 /min eCW1 ([facility]) Respiratory rate 18 /min 18 /min eCW1 ([facility]) Body temperature 98.0 [degF] 98.0 [degF] eCW1 ( [facility]) Systolic blood pressure 124 mm[Hg] 124 mm[Hg] e CW1 ([facility]) Body weight 213 [lb_av] 213 [lb_av] eCW1 ([facility]) Body height 65.75 [in_i] 65.75 [in_i] eCW1 ([facility]) Body mass index (BMI) [Ratio] 34.64 kg/m2 34.64 kg/m2 eCW1 ([facility]) Heart rate 113 /min 113 /min eCW1 ([facility]) Respiratory rate 19 /min 19 /min eCW1 ([facility]) Body temperature 96.8 [degF] 96.8 [degF] eCW1 ( [facility]) Systolic blood pressure 118 mm[Hg] 118 mm[Hg] e CW1 ([facility]) Diastolic blood pressure 74 mm[Hg] 74 mm[Hg] eCW1 ([facility])
[2021-05-31] MEDS ORDERED: predniSONE 20 MG TAB PO ONE
[2021-05-31] MEDS ORDERED: PRED20TA PO (00:06)
--- NOTE | 2021-05-31 01:14 | REPVR ---
PROCEDURE INFORMATION: Exam: XR Chest Exam date and time: 05/30/2021 11:52 PM Age: 51 years old Clinical indication: Pain; On breathing; Additional info: Chest pain TECHNIQUE: Imaging protocol: XR of the chest. Views: 2 views. COMPARISON: 1. CR Chest, 1 view 2017-08-10 15:23 2. CR SHOULDER COMPLETE 2017-03-26 18:06 FINDINGS: Lungs: Unremarkable. No consolidation. Pleural spaces: Unremarkable. No pleural effusion. No pneumothorax. Heart/Mediastinum: Unremarkable. No cardiomegaly. Bones/joints: Unremarkable. IMPRESSION: No acute findings. Electronically signed by: Madhu Butcher On 05/31/2021 01:14:11 AM
--- NOTE | 2021-05-31 07:32 | ECGEPIP ---
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
== END 2021-05-31 00:26 | disposition home or self-care (01) ==
LOC: M ED 15:10
DX: R07.1 Chest pain on breathing (principal); R00.0 Tachycardia, unspecified; R94.31 Abnormal electrocardiogram [ECG] [EKG]; J45.909 Unspecified asthma, uncomplicated; Z79.51 Long term (current) use of inhaled steroids; Z79.899 Other long term (current) drug therapy; Z88.0 Allergy status to penicillin; Z88.8 Allergy status to other drugs, medicaments and biological substances
CPT/HCPCS: 71046; 93005; 99284; J7512

== ENCOUNTER → 2021-07-23 | Outpatient (CLI) | payer OTHER ==
[~2021-07-23] MED LIST changes: +PRED20TA PO
== END ==
LOC: M WHC 13:15
PROVIDERS: ATTEND Nurse Practitioner Women's Health
DX: Z12.31 Encounter for screening mammogram for malignant neoplasm of breast (principal)

== ENCOUNTER → 2021-07-23 | Outpatient (REF) | payer OTHER | LOC: M SFHCWAGY 17:15 | PROVIDERS: ATTEND Nurse Practitioner Women's Health | DX: Z12.4 Encounter for screening for malignant neoplasm of cervix (principal); Z01.419 Encounter for gynecological examination (general) (routine) without abnormal findings ==

== ENCOUNTER 2022-03-16 02:19 | Day surgery (SDC) | payer OTHER ==
[~2022-03-16] VITALS: Ht 167.6 cm; Wt 90.4 kg
[~2022-03-16 02:19] MED LIST changes: -PROAAER10; +PROAAER10 INH
[2022-03-16 02:58] LABS: BASO # 0.1 10^3/uL (0.0-0.2); BASO % 0.3 % (0.0-1.0); EOS % 0.2 % (0.0-3.0); HEMATOCRIT 41.9 % (36.0-47.0); HEMOGLOBIN 14.5 g/dl (12.0-15.5); LYMPH # 1.4 10^3/uL (1.5-5.0); LYMPH % 8.3 % (24.0-44.0); MEAN CORPUSCULAR HEMOGLOBIN 29.7 pg (27.0-33.0); MEAN CORPUSCULAR HGB CONC 34.6 g/dl (32.0-36.5); MEAN CORPUSCULAR VOLUME 85.7 fl (80.0-96.0); MONO # 0.6 10^3/uL (0.0-0.8); MONO % 3.5 % (2.0-8.0); NEUTROPHILS # 14.7 10^3/uL (1.5-8.5); NEUTROPHILS % 87.3 % (36.0-66.0); PLATELET COUNT, AUTOMATED 267 10^3/uL (150-450); RED BLOOD COUNT 4.89 10^6/uL (4.00-5.40); WHITE BLOOD COUNT 16.8 10^3/uL (4.0-10.0)
[2022-03-16 03:06] LABS: INR 0.92; PROTHROMBIN TIME 12.8 SECONDS (12.7-14.5)
[2022-03-16 03:17] LABS: CK-MB VALUE MASS < 1.0 NG/ML (<3.6); CPK CREATINE PHOSPHOKINASE 91 U/L (26-192)
[2022-03-16 03:31] LABS: ALBUMIN 3.6 GM/DL (3.2-5.2); ALT/SGPT 25 U/L (12-78); AMYLASE 24 U/L (25-115); BILIRUBIN,DIRECT 0.1 MG/DL (0.0-0.2); BILIRUBIN,TOTAL 0.5 MG/DL (0.2-1.0); BLOOD UREA NITROGEN 14 MG/DL (7-18); CALCIUM LEVEL 8.8 MG/DL (8.5-10.1); CARBON DIOXIDE LEVEL 23 MEQ/L (21-32); CHLORIDE LEVEL 103 MEQ/L (98-107); CREATININE FOR GFR 0.83 MG/DL (0.55-1.30); GLOMERULAR FILTRATION RATE > 60.0 (>51); GLUCOSE, FASTING 134 MG/DL (70-100); LIPASE 83 U/L (73-393); POTASSIUM SERUM 4.2 MEQ/L (3.5-5.1); SODIUM LEVEL 135 MEQ/L (136-145)
[2022-03-16 03:33] LABS: RSV AMPLIFICATION NEGATIVE (NEGATIVE)
[2022-03-16] MEDS ORDERED: ISOVUE-370 76% 100ML VIAL As Ordered ONE (04:17)
[2022-03-16] MEDS ORDERED: CIPROFLOXACIN 400 MG in IV 1 EA IV ONE (05:50)
[2022-03-16] MEDS ORDERED: metroNIDAZOLE 500 MG in IV 1 EA IV ONE (05:50)
[2022-03-16] MEDS ORDERED: FLUT1INH2 INH (05:56)
[2022-03-16] MEDS ORDERED: HOME MED LIST COMPLETE! XX SCH (06:00)
[2022-03-16] MEDS: LR 1,000 ML IV SCH ×2 (09:45→21:40)
[2022-03-16] MEDS ORDERED: ONDANSETRON 4MG 2ML VIAL IV PRN ×2 (10:00→13:45)
[2022-03-16] MEDS ORDERED: MORPHINE 2 MG/ML 1ML VIAL IV PRN (10:00)
[2022-03-16] MEDS ORDERED: KETOROLAC 30 MG/ML 1ML VIAL IV PRN (10:00)
[2022-03-16] MEDS ORDERED: BUPIVACAINE HCL 0.25% 30ML VIAL As Ordered ONE ×2 (11:42→11:43)
[2022-03-16] MEDS ORDERED: SUGAMMADEX SODIUM 500 MG/5 ML VIAL (BRIDION) As Ordered ONE (12:30)
[2022-03-16] MEDS ORDERED: ROCURONIUM BROMIDE 50 MG/5 ML VIAL As Ordered ONE (12:30)
[2022-03-16] MEDS ORDERED: ONDANSETRON 4MG 2ML VIAL As Ordered ONE (12:30)
[2022-03-16] MEDS ORDERED: MIDAZOLAM INJ 2MG/2ML VIAL (J2250 PER 1MG) As Ordered ONE (12:30)
[2022-03-16] MEDS ORDERED: LIDOCAINE 2% 100MG/5ML SDV (FOR ANES.) As Ordered ONE (12:30)
[2022-03-16] MEDS ORDERED: propofoL 200 MG/20 ML VIAL As Ordered ONE (12:30)
[2022-03-16] MEDS ORDERED: fentaNYL 100 MCG/2 ML INJECTION As Ordered ONE ×2 (12:30→12:54)
[2022-03-16] MEDS ORDERED: dexameTHASONE 4 MG/ML 1ML VIAL (J1100 PER 1MG) As Ordered ONE (12:30)
[2022-03-16] MEDS ORDERED: ALBUTEROL 6.7GM INHALER **FOR ANES. CART/OMNICELL ONLY As Ordered ONE (12:33)
[2022-03-16] MEDS ORDERED: PHENYLephrine 500MCG 5ML (100MCG/ML) SYRINGE As Ordered ONE (12:34)
[2022-03-16] MEDS ORDERED: ACETAMINOPHEN 1000MG 100ML IV BTL (OFIRMEV) (J0131 PER 10MG) As Ordered ONE (12:49)
[2022-03-16] MEDS ORDERED: ESMOLOL INJ 100MG/10ML VIAL As Ordered ONE (13:06)
[2022-03-16] MEDS ORDERED: LR 1,000 ML IV SCH (13:45)
[2022-03-16] MEDS ORDERED: oxyCODONE 5MG TAB PO PRN (13:45)
[2022-03-16] MEDS ORDERED: fentaNYL 100 MCG/2 ML INJECTION IV PRN (13:45)
[2022-03-16 15:20] VITALS: BP 132/80
[2022-03-16 15:45] VITALS: BP 141/77
[2022-03-16] MEDS ORDERED: metroNIDAZOLE 500 MG in IV 1 EA IV SCH (16:00)
[2022-03-16] MEDS ORDERED: NORCO, ANEXSIA 5/325MG TABLET (HYDROcodone/ACETAMINOPHEN) PO PRN (17:00)
[2022-03-16 17:15] VITALS: BP 130/72
[2022-03-16] MEDS ORDERED: ACETAMINOPHEN TAB 650MG DOSE (2X325MG) PO PRN (18:00)
[2022-03-16] MEDS ORDERED: CIPROFLOXACIN 400 MG in IV 1 EA IV SCH (18:00)
[2022-03-16 18:22] VITALS: BP 113/69
[2022-03-16 22:00] VITALS: BP 111/69
[2022-03-17] MEDS: LR 1,000 ML IV SCH (01:45)
[2022-03-17 02:00] VITALS: BP 101/55
[2022-03-17 06:00] VITALS: BP 111/58
== END 2022-03-17 09:08 | disposition home or self-care (01) ==
LOC: M ED 02:19 → M SDC 02:20 → M MSPAV 15:16 → M SDC 03-17 09:08
PROVIDERS: ATTEND Surgery
DX: K35.80 Unspecified acute appendicitis (principal); J45.909 Unspecified asthma, uncomplicated; Z88.0 Allergy status to penicillin; Z88.8 Allergy status to other drugs, medicaments and biological substances
CPT/HCPCS: 44970; 80053; 82150; 82248; 82550; 82553; 83690; 84484; 85025; 85610; 87631; 88304; 93005; 96365; 96366; 96367; 96368; 99285; J0131; J0744; J1100; J2250; J2370; J2405; J3010; Q9967

== ENCOUNTER → 2022-07-23 | Outpatient (CLI) | payer OTHER ==
[~2022-07-23] MED LIST changes: +ALBU8.5H INH; +FLUT1INH2 INH
== END ==
LOC: M LABSMTC 11:04
PROVIDERS: ATTEND Anesthesiology
DX: Z01.818 Encounter for other preprocedural examination (principal)

== ENCOUNTER → 2022-07-28 | Day surgery (SDC) | payer OTHER ==
[~2022-07-28] VITALS: Ht 167.6 cm; Wt 92.0 kg
[~2022-07-28] MED LIST changes: +LIDOCAINE 2% 100MG/5ML SDV (FOR ANES.) As Ordered ONE; +NS 1,000 ML IV ONE; +propofoL 200 MG/20 ML VIAL As Ordered ONE
[2022-07-28 12:30] VITALS: BP 127/80
== END | disposition home or self-care (01) ==
LOC: M OPP 11:04
PROVIDERS: ATTEND Surgery
DX: Z12.11 Encounter for screening for malignant neoplasm of colon (principal); K64.1 Second degree hemorrhoids; Z79.51 Long term (current) use of inhaled steroids; Z79.52 Long term (current) use of systemic steroids; Z88.1 Allergy status to other antibiotic agents; Z88.8 Allergy status to other drugs, medicaments and biological substances; J45.909 Unspecified asthma, uncomplicated

== ENCOUNTER → 2022-08-07 | Outpatient (CLI) | payer OTHER ==
[~2022-08-07] MED LIST changes: -LIDOCAINE 2% 100MG/5ML SDV (FOR ANES.) As Ordered ONE; -NS 1,000 ML IV ONE; -propofoL 200 MG/20 ML VIAL As Ordered ONE
== END ==
LOC: M WHC 12:48
PROVIDERS: ATTEND Student in an Organized Health Care Education/Training Program
DX: Z12.31 Encounter for screening mammogram for malignant neoplasm of breast (principal)

== ENCOUNTER → 2022-08-07 | Outpatient (CLI) | payer OTHER | LOC: M PLAIMG 12:01 | PROVIDERS: ATTEND Student in an Organized Health Care Education/Training Program | DX: M51.37 Other intervertebral disc degeneration, lumbosacral region (principal) ==

== ENCOUNTER → 2022-11-27 | Outpatient (REF) | payer OTHER ==
[~2022-11-27] MED LIST changes: +FLUT50SP17; -FLUTISP
== END ==
LOC: M SFHCDERM 17:26
PROVIDERS: ATTEND Nurse Practitioner Family
DX: L30.9 Dermatitis, unspecified (principal)

== ENCOUNTER → 2023-01-21 | Outpatient (CLI) | payer OTHER ==
[2023-01-21 18:19] LABS: BASO % 0.2 % (0.0-1.0); EOS % 0.4 % (0.0-3.0); HEMATOCRIT 43.1 % (36.0-47.0); HEMOGLOBIN 14.2 g/dl (12.0-15.5); HEMOGLOBIN A1c 5.4 % (4.0-6.0); LYMPH # 1.1 10^3/uL (1.5-5.0); LYMPH % 9.9 % (24.0-44.0); MEAN CORPUSCULAR HGB CONC 32.9 g/dl (32.0-36.5); MEAN CORPUSCULAR VOLUME 88.1 fl (80.0-96.0); MONO # 0.1 10^3/uL (0.0-0.8); MONO % 0.9 % (2.0-8.0); NEUTROPHILS # 9.7 10^3/uL (1.5-8.5); NEUTROPHILS % 88.1 % (36.0-66.0); PLATELET COUNT, AUTOMATED 212 10^3/uL (150-450); RED BLOOD COUNT 4.89 10^6/uL (4.00-5.40)
[2023-01-21 18:31] LABS: ALBUMIN 3.9 G/DL (3.2-5.2); ALKALINE PHOSPHATASE 56 U/L (46-116); ALT/SGPT 34 U/L (7.0-40); AST/SGOT 21 U/L (<34); BILIRUBIN,TOTAL 0.4 MG/DL (0.3-1.2); BLOOD UREA NITROGEN 12 MG/DL (9-23); CALCIUM LEVEL 8.8 MG/DL (8.5-10.1); CARBON DIOXIDE LEVEL 24 MMOL/L (20-31); CHLORIDE LEVEL 103 MMOL/L (98-107); CHOLESTEROL LEVEL 282 MG/DL (<200); CHOLESTEROL RISK RATIO 5.66 (<5); CREATININE FOR GFR 0.76 MG/DL (0.55-1.30); GLOMERULAR FILTRATION RATE > 60.0 (>51); GLUCOSE, FASTING 124 MG/DL (60-100); HDL CHOLESTEROL 49.8 MG/DL (>40); LDL CHOLESTEROL 192.6 MG/DL (<100); NON-HDL-C 232.2 MG/DL; POTASSIUM SERUM 4.7 MMOL/L (3.5-5.1); SODIUM LEVEL 137 MMOL/L (136-145); TRIGLYCERIDES LEVEL 198 MG/DL (<150)
== END ==
LOC: M PLALAB 14:53
PROVIDERS: ATTEND Student in an Organized Health Care Education/Training Program
DX: R79.89 Other specified abnormal findings of blood chemistry (principal); J45.31 Mild persistent asthma with (acute) exacerbation; E78.00 Pure hypercholesterolemia, unspecified; Z13.1 Encounter for screening for diabetes mellitus

== ENCOUNTER → 2023-03-12 | Outpatient (CLI) | payer OTHER | LOC: M WHC 11:42 | PROVIDERS: ATTEND Student in an Organized Health Care Education/Training Program | DX: N92.6 Irregular menstruation, unspecified (principal) ==

== ENCOUNTER → 2023-05-06 | Outpatient (CLI) | payer OTHER ==
[2023-05-06 12:13] LABS: CHOLESTEROL RISK RATIO 6.77 (<5); HDL CHOLESTEROL 47.4 MG/DL (>40); LDL CHOLESTEROL 222.2 MG/DL (<100); NON-HDL-C 273.6 MG/DL
[2023-05-06 12:15] LABS: LUTEINIZING HORMONE 2.1 mIU/ML
[2023-05-06 12:16] LABS: FOLLICLE STIMULATING HORMONE 2.2 mIU/ML
== END ==
LOC: M PLALAB 08:38
PROVIDERS: ATTEND Student in an Organized Health Care Education/Training Program
DX: E78.00 Pure hypercholesterolemia, unspecified (principal)

== ENCOUNTER → 2024-01-20 | Outpatient (CLI) | payer OTHER ==
[~2024-01-20] MED LIST changes: -FLUT50SP17; +FLUTISP
== END ==
LOC: M WHC 14:44
PROVIDERS: ATTEND Nurse Practitioner Family
DX: Z12.31 Encounter for screening mammogram for malignant neoplasm of breast (principal)

== ENCOUNTER → 2024-01-20 | Outpatient (REF) | payer OTHER ==
[2024-01-25 13:01] LABS: HPV APTIMA Not Detected (Not Detected)
== END ==
LOC: M SFHCWAGY 13:06
PROVIDERS: ATTEND Nurse Practitioner Family
DX: Z12.4 Encounter for screening for malignant neoplasm of cervix (principal); Z77.9 Other contact with and (suspected) exposures hazardous to health; R87.615 Unsatisfactory cytologic smear of cervix

== ENCOUNTER → 2024-01-28 | Outpatient (REF) | payer OTHER | LOC: M SFHCWAGY 15:00 | PROVIDERS: ATTEND Nurse Practitioner Family | DX: R39.15 Urgency of urination (principal); R30.0 Dysuria ==

== ENCOUNTER → 2024-02-09 | Outpatient (CLI) | payer OTHER ==
[2024-02-09 15:58] LABS: BASO # 0.1 10^3/uL (0.0-0.2); BASO % 0.6 % (0.0-1.0); EOS # 0.2 10^3/uL (0.0-0.5); EOS % 1.9 % (0.0-3.0); HEMATOCRIT 44.1 % (36.0-47.0); HEMOGLOBIN 14.8 g/dl (12.0-15.5); LYMPH # 2.4 10^3/uL (1.5-5.0); LYMPH % 25.7 % (24.0-44.0); MEAN CORPUSCULAR HEMOGLOBIN 29.1 pg (27.0-33.0); MEAN CORPUSCULAR HGB CONC 33.6 g/dl (32.0-36.5); MEAN CORPUSCULAR VOLUME 86.8 fl (80.0-96.0); MONO # 0.6 10^3/uL (0.0-0.8); MONO % 6.2 % (2.0-8.0); NEUTROPHILS # 6.2 10^3/uL (1.5-8.5); NEUTROPHILS % 65.3 % (36.0-66.0); PLATELET COUNT, AUTOMATED 310 10^3/uL (150-450); RED BLOOD COUNT 5.08 10^6/uL (4.00-5.40); WHITE BLOOD COUNT 9.5 10^3/uL (4.0-10.0)
[2024-02-09 16:36] LABS: BLOOD UREA NITROGEN 11 MG/DL (9-23); CARBON DIOXIDE LEVEL 27 MMOL/L (20-31); CHLORIDE LEVEL 106 MMOL/L (98-107); CHOLESTEROL LEVEL 225 MG/DL (<200); CHOLESTEROL RISK RATIO 5.12 (<5); CREATININE FOR GFR 0.83 MG/DL (0.55-1.30); GLOMERULAR FILTRATION RATE > 60.0 (>51); GLUCOSE, FASTING 85 MG/DL (60-100); HDL CHOLESTEROL 43.9 MG/DL (>40); LDL CHOLESTEROL 141.5 MG/DL (<100); NON-HDL-C 181.1 MG/DL; POTASSIUM SERUM 4.8 MMOL/L (3.5-5.1); SODIUM LEVEL 134 MMOL/L (136-145); TRIGLYCERIDES LEVEL 198 MG/DL (<150)
== END ==
LOC: M PLALAB 11:32
PROVIDERS: ATTEND Student in an Organized Health Care Education/Training Program
DX: Z01.818 Encounter for other preprocedural examination (principal)

== ENCOUNTER → 2024-04-21 | Outpatient (REF) | payer OTHER | LOC: M SFHCPLAZ 14:37 | PROVIDERS: ATTEND Family Medicine | DX: J45.30 Mild persistent asthma, uncomplicated (principal); E78.00 Pure hypercholesterolemia, unspecified; Z77.011 Contact with and (suspected) exposure to lead; N95.1 Menopausal and female climacteric states ==

== ENCOUNTER → 2024-08-29 | Outpatient (CLI) | payer OTHER ==
[~2024-08-29] MED LIST changes: -ADV250INH INH; +ADVA1AER9 INH
== END ==
LOC: M PLALAB 14:56
PROVIDERS: ATTEND Family Medicine
DX: Z96.669 Presence of unspecified artificial ankle joint (principal)

== ENCOUNTER → 2024-09-08 | Outpatient (REF) | payer OTHER | LOC: M PLALAB 17:29 | PROVIDERS: ATTEND Family Medicine | DX: Z77.011 Contact with and (suspected) exposure to lead (principal) ==

== ENCOUNTER → 2024-10-23 | Outpatient (CLI) | payer OTHER ==
[2024-10-23 14:03] LABS: ALBUMIN 3.8 G/DL (3.2-5.2); ALKALINE PHOSPHATASE 62 U/L (35-104); ALT/SGPT 16 U/L (7.0-40); AST/SGOT 14 U/L (<34); BILIRUBIN,TOTAL 0.6 MG/DL (0.3-1.2); BLOOD UREA NITROGEN 8 MG/DL (9-23); CARBON DIOXIDE LEVEL 27 MMOL/L (20-31); CHLORIDE LEVEL 106 MMOL/L (98-107); CHOLESTEROL LEVEL 168 MG/DL (<200); CHOLESTEROL RISK RATIO 3.69 (<5); CREATININE FOR GFR 0.77 MG/DL (0.55-1.30); GLOMERULAR FILTRATION RATE > 90.0 (>51); GLUCOSE, FASTING 94 MG/DL (60-100); HDL CHOLESTEROL 45.5 MG/DL (>40); LDL CHOLESTEROL 96.3 MG/DL (<100); NON-HDL-C 122.5 MG/DL; POTASSIUM SERUM 4.9 MMOL/L (3.5-5.1); SODIUM LEVEL 140 MMOL/L (136-145); TOTAL PROTEIN 6.6 G/DL (5.7-8.2); TRIGLYCERIDES LEVEL 131 MG/DL (<150)
[2024-10-23 14:04] LABS: FOLLICLE STIMULATING HORMONE 10.5 mIU/ML; LUTEINIZING HORMONE 2.7 mIU/ML
== END ==
LOC: M PLALAB 11:05
PROVIDERS: ATTEND Family Medicine
DX: Z77.011 Contact with and (suspected) exposure to lead (principal)

== ENCOUNTER → 2024-11-23 | Outpatient (CLI) | payer OTHER ==
[2024-11-23 14:15] LABS: BASO # 0.1 10^3/uL (0.0-0.2); BASO % 0.7 % (0.0-1.0); EOS # 0.2 10^3/uL (0.0-0.5); EOS % 2.4 % (0.0-3.0); HEMATOCRIT 42.5 % (36.0-47.0); HEMOGLOBIN 13.8 g/dl (12.0-15.5); LYMPH # 2.2 10^3/uL (1.5-5.0); MEAN CORPUSCULAR HEMOGLOBIN 29.1 pg (27.0-33.0); MEAN CORPUSCULAR HGB CONC 32.5 g/dl (32.0-36.5); MEAN CORPUSCULAR VOLUME 89.7 fl (80.0-96.0); MONO # 0.5 10^3/uL (0.0-0.8); MONO % 6.7 % (2.0-8.0); NEUTROPHILS # 4.2 10^3/uL (1.5-8.5); NEUTROPHILS % 59.1 % (36.0-66.0); PLATELET COUNT, AUTOMATED 289 10^3/uL (150-450); RED BLOOD COUNT 4.74 10^6/uL (4.00-5.40)
[2024-11-23 14:39] LABS: ALBUMIN 3.6 G/DL (3.2-5.2); ALKALINE PHOSPHATASE 66 U/L (35-104); ALT/SGPT 15 U/L (7.0-40); AST/SGOT 12 U/L (<34); BILIRUBIN,TOTAL 0.4 MG/DL (0.3-1.2); BLOOD UREA NITROGEN 14 MG/DL (9-23); CALCIUM LEVEL 8.9 MG/DL (8.5-10.1); CARBON DIOXIDE LEVEL 28 MMOL/L (20-31); CHLORIDE LEVEL 104 MMOL/L (98-107); CHOLESTEROL LEVEL 158 MG/DL (<200); CHOLESTEROL RISK RATIO 3.22 (<5); CREATININE FOR GFR 0.77 MG/DL (0.55-1.30); GLOMERULAR FILTRATION RATE > 90.0 (>51); GLUCOSE, FASTING 97 MG/DL (60-100); LDL CHOLESTEROL 73.8 MG/DL (<100); POTASSIUM SERUM 4.4 MMOL/L (3.5-5.1); SODIUM LEVEL 140 MMOL/L (136-145); TOTAL PROTEIN 6.5 G/DL (5.7-8.2); TRIGLYCERIDES LEVEL 176 MG/DL (<150)
== END ==
LOC: M PLALAB 10:30
PROVIDERS: ATTEND Student in an Organized Health Care Education/Training Program
DX: Z01.818 Encounter for other preprocedural examination (principal)

== ENCOUNTER → 2025-04-20 | Outpatient (CLI) | payer OTHER ==
[2025-04-20 17:25] LABS: PLATELET COUNT, AUTOMATED 336 10^3/uL (150-450)
[2025-04-20 17:27] LABS: IRON (FE) 32.0 UG/DL (50-170)
[2025-04-20 17:28] LABS: CALCIUM LEVEL 9.0 MG/DL (8.5-10.1); CARBON DIOXIDE LEVEL 29.0 MMOL/L (20-31); CHLORIDE LEVEL 103.0 MMOL/L (98-107); CREATININE FOR GFR 0.81 MG/DL (0.55-1.30); GLOMERULAR FILTRATION RATE 86.2 (>51); PERCENT SATURATION 10.2 % (13.2-45.0); PHOSPHORUS LEVEL 4.0 MG/DL (2.5-4.9); POTASSIUM SERUM 4.7 MMOL/L (3.5-5.1); SODIUM LEVEL 140.0 MMOL/L (136-145)
== END ==
LOC: M PLALAB 15:29
PROVIDERS: ATTEND Family Medicine
DX: D50.0 Iron deficiency anemia secondary to blood loss (chronic) (principal); F41.0 Panic disorder [episodic paroxysmal anxiety]

== ENCOUNTER → 2025-05-04 | Outpatient (CLI) | payer OTHER | LOC: M WHC 15:00 | PROVIDERS: ATTEND Student in an Organized Health Care Education/Training Program | DX: Z12.31 Encounter for screening mammogram for malignant neoplasm of breast (principal); R92.313 Mammographic fatty tissue density, bilateral breasts ==

== ENCOUNTER → 2025-05-04 | Outpatient (REF) | payer OTHER ==
[2025-05-08 13:37] LABS: HPV APTIMA Not Detected (Not Detected)
== END ==
LOC: M PLALAB 09:42
PROVIDERS: ATTEND Student in an Organized Health Care Education/Training Program
DX: Z01.411 Encounter for gynecological examination (general) (routine) with abnormal findings (principal); Z12.31 Encounter for screening mammogram for malignant neoplasm of breast; N93.9 Abnormal uterine and vaginal bleeding, unspecified; Z79.899 Other long term (current) drug therapy; Z79.51 Long term (current) use of inhaled steroids; Z88.1 Allergy status to other antibiotic agents; Z88.8 Allergy status to other drugs, medicaments and biological substances

== ENCOUNTER → 2025-05-31 | Outpatient (REF) | payer OTHER | LOC: M PLALAB 09:41 | PROVIDERS: ATTEND Student in an Organized Health Care Education/Training Program | DX: N92.6 Irregular menstruation, unspecified (principal) ==